=== PATIENT | female | born 1980 | race Caucasian/White ===

== ENCOUNTER 2018-03-10 17:08 | Emergency (ER) | payer OTHER ==
[~2018-03-10] VITALS: Ht 157.5 cm; Wt 72.6 kg
--- NOTE | 2018-03-10 17:15 | NUR ---
Pt unable to recall medications taken daily.
--- NOTE | 2018-03-10 17:16 | NUR ---
Dr Wilson at the bedside for MSE.
[2018-03-10] MEDS ORDERED: IBUPROFEN 600 MG TABLET ONE (17:25)
[2018-03-10] MEDS ORDERED: IBUPROFEN 600 MG TABLET PO ONE (17:30)
--- NOTE | 2018-03-10 17:38 | NUR ---
Pt has small abrasion on LLE, cleaned and dressed.
--- NOTE | 2018-03-10 18:00 | NUR ---
Pt out of ER for xray.
--- NOTE | 2018-03-10 18:19 | NUR ---
Pt back from xray, states pain is better.
[2018-03-10 18:20] VITALS: BP 115/60
== END 2018-03-10 18:22 | disposition home or self-care (01) ==
LOC: ER 17:10
DX: S20.219A Contusion of unspecified front wall of thorax, initial encounter (principal); Z90.710 Acquired absence of both cervix and uterus; V49.9XXA Car occupant (driver) (passenger) injured in unspecified traffic accident, initial encounter; Y93.89 Activity, other specified; Y92.410 Unspecified street and highway as the place of occurrence of the external cause; Y99.8 Other external cause status
CPT/HCPCS: 71045; 72050; A4663

== ENCOUNTER 2025-01-02 16:58 | Emergency (ER) | payer MEDICAID, OTHER ==
[~2025-01-02] VITALS: Ht 165.1 cm; Wt 95.3 kg
[2025-01-02 18:06] LABS: *BILIRUBIN,URIN NEGATIVE (NEGATIVE); *BLOOD, URINE 1+ (NEGATIVE); *CLARITY,URINE CLEAR (CLEAR); *COLOR,URINE YELLOW (YELLOW); *KETONES,URINE NEGATIVE (NEGATIVE); *PROTEIN,URINE NEGATIVE (NEGATIVE); *UROBILINOGEN,URINE 0.2 E.U./dl (NORMAL); LEUKOCYTE ESTERASE ,URINE NEGATIVE (NEGATIVE); NITRITE, URINE NEGATIVE (NEGATIVE); PH,URINE 5.5 (5.0-8.0); UGLUCOSE NEGATIVE (NEGATIVE)
[2025-01-02 18:14] LABS: RBC,URINE 0-3 /HPF (0-3); WBC,URINE 0-3 /HPF (0-3)
[2025-01-02 18:15] LABS: *URINE HCG, QUAL NEGATIVE (NEGATIVE)
[2025-01-02 19:06] VITALS: BP 124/78; O2SAT 99
== END 2025-01-02 19:12 | disposition home or self-care (01) ==
LOC: ER 19:11
DX: M54.9 Dorsalgia, unspecified (principal); R10.9 Unspecified abdominal pain
CPT/HCPCS: 84703; 87086; A4606; A4663